=== PATIENT | female | born 1950 | race Caucasian/White ===

== ENCOUNTER 2016-07-23 10:07 | Emergency (ER) | payer MEDICARE, OTHER ==
[2016-07-23] MEDS ORDERED: KETOROLAC 60 MG/2 ML VIAL IM STA (12:45)
[2016-07-23] MEDS ORDERED: DEXAMETHASONE 10 MG/ML VIAL PO STA (12:46)
[2016-07-23] MEDS ORDERED: KETOROLAC 60 MG/2 ML VIAL ONE (12:48)
[2016-07-23] MEDS ORDERED: DEXAMETHASONE 10 MG/ML VIAL ONE (12:48)
[2016-07-23] MEDS ORDERED: CHERRY SYRUP 10 ML UDC PO ONE (12:48)
== END 2016-07-23 13:08 | disposition home or self-care (01) ==
DX: M46.1 Sacroiliitis, not elsewhere classified (principal); F17.200 Nicotine dependence, unspecified, uncomplicated
CPT/HCPCS: 96372; 99282; 99283; A9270

== ENCOUNTER 2016-10-10 02:01 | Emergency (ER) | payer MEDICARE, OTHER ==
[2016-10-10] MEDS ORDERED: oxyCOD/ACETAMIN 5 MG/325 MG TABLET PO STA (02:38)
[2016-10-10] MEDS ORDERED: METHOCARBAMOL 500 MG TABLET PO STA (02:38)
[2016-10-10] MEDS ORDERED: IBUPROFEN 600 MG TABLET PO STA (02:38)
[2016-10-10] MEDS ORDERED: oxyCODONE/ACET 5/325 Prepack 4 PO STA (02:38)
[2016-10-10] MEDS ORDERED: oxyCODONE/ACET 5/325 Prepack 4 PO ONE (02:41)
[2016-10-10] MEDS ORDERED: IBUPROFEN 600 MG TABLET PO ONE (02:41)
[2016-10-10] MEDS ORDERED: oxyCOD/ACETAMIN 5 MG/325 MG TABLET PO ONE (02:41)
[2016-10-10] MEDS ORDERED: METHOCARBAMOL 500 MG TABLET PO ONE (02:41)
== END 2016-10-10 03:29 | disposition home or self-care (01) ==
DX: M54.2 Cervicalgia (principal); E03.9 Hypothyroidism, unspecified; F17.200 Nicotine dependence, unspecified, uncomplicated
CPT/HCPCS: 72040; 99283; A9270

== ENCOUNTER 2016-12-02 06:36 | Emergency (ER) | payer MEDICARE, OTHER ==
[2016-12-02] MEDS ORDERED: HYDROmorphone 1 MG/ML SYRINGE IM STA (07:32)
[2016-12-02] MEDS ORDERED: LIDOCAINE PATCH 5% TOP STA (07:32)
[2016-12-02] MEDS ORDERED: KETOROLAC 60 MG/2 ML VIAL IM STA (07:32)
--- NOTE | 2016-12-02 07:35 | ED Physician Documentation ---
History of Present Illness - Stated complaint Stated Complaint: HEAD/NECK/BACK PX - Chief complaint Chief Complaint: Back Pain - Additonal information Additional information: 66 female long standing neck and back pain prior L spine fusion recent MRI showed C spine nerve impingement has a referral to a pain specialist but appt not till December 22 takes dilaudid at home in neck and low lumbar L side pain not relieved by home meds no new numbness or weakness no saddle anesthesia no incont no rash also had a colonoscopy 5 days ago and is having abd pain Review of Systems Constitutional: denies: Fever, Chills Cardiac: denies: Chest pain / pressure Respiratory: denies: Dyspnea, Cough GI: reports: Abdominal Pain. denies: Nausea, Vomiting, Diarrhea : denies: Incontinent, Hematuria Musculoskeletal: reports: Neck pain, Back pain Neurologic: denies: Focal weakness, Numbness Endocrine: denies: Easy bruising / bleeding Immunocompromised: denies: Immunocompromised PD PAST MEDICAL HISTORY - Past Medical History Cardiovascular: None Respiratory: None Endocrine/Autoimmune: HyPOthyroidism, Other GI: None : None HEENT: None Psych: Depression Musculoskeletal: None, Chronic back pain Derm: None - Past Surgical History Past Surgical History: Yes General: Cholecystectomy, Appendectomy, Colonoscopy Ortho: Spine surgery, 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 HEENT: Cataracts - Present Medications Home Medications: Ambulatory Orders Medication Instructions Recorded Confirmed Levothyroxine [Synthroid] 175 mcg PO QDAC 03/30/13 12/02/16 Sertraline [Zoloft] 150 mg PO DAILY 03/30/13 12/02/16 Vit D3/Folic Acid/B2/B6/B12 1 units PO DAILY 03/30/13 12/02/16 [Folgard Tablet] Amox/Clav 875/125 [Augmentin] 1 each PO Q12H #20 tablet 12/02/16 Docusate Sodium 250Mg Capsule 250 mg PO DAILY #14 capsule 12/02/16 [Colace 250Mg Capsule] HYDROmorphone [Dilaudid] 2 mg PO Q6HR 12/02/16 12/02/16 Lidocaine Patch 5% [Lidoderm Patch] 1 each TOP DAILY PRN #10 patch 12/02/16 - Allergies Allergies/Adverse Reactions: Allergies Allergy/AdvReac Type Severity Reaction Status Date / Time morphine AdvReac Mild Hallucinati Verified 10/10/16 02:10 ons - Social History Does the pt smoke?: Yes Smoking Status: Current every day smoker Does the pt drink ETOH?: Yes Does the pt have substance abuse?: No - Immunizations Immunizations are current?: Yes - POLST Patient has POLST: No PD ED PE NORMAL - Vitals Vital signs reviewed: Yes - General General: Alert and oriented X 3 - HEENT HEENT: PERRL - Neck Neck: Supple, no meningeal sign, Other (no focal TTP and no redness swelling or warmth - had MRI within last few wks of this) - Cardiac Cardiac: RRR - Respiratory Respiratory: No respiratory distress, Clear bilaterally - Abdomen Abdomen: Soft, Other (mild diffuse TTP) - Back Back: No spinal TTP (midline scar, no focal redness or swelling or warmth, TTP L SI jt region, ) - Neuro Neuro: No motor deficit (limited L hip flexion 2/2 pain but makes effort, no numbness, no clonus, denies saddle anesthesia), No sensory deficit Results - Vitals Vitals: Vital Signs - 24 hr 12/02/16 12/02/16 06:48 08:27 Temperature 36.5 C Heart Rate 88 72 Respiratory 12 16 Rate Blood Pressure 111/52 L 106/67 O2 Saturation 97 97 Oxygen O2 Source Room air - Labs Labs: Laboratory Tests 12/02/16 07:40 Urine Color YELLOW Urine Clarity HAZY Urine pH 6.0 Ur Specific [place] <=1.005 Urine Protein NEGATIVE Urine Glucose (UA) NEGATIVE Urine Ketones NEGATIVE Urine Occult Blood TRACE-LYSE Urine Nitrite NEGATIVE Urine Bilirubin NEGATIVE Urine Urobilinogen 0.2 (NORMAL) Ur Leukocyte Esterase SMALL H Urine RBC 0-5 Urine WBC 6-10 H Ur Squamous Epith Cells RARE Squamous Urine Bacteria Few Ur Microscopic Review INDICATED Urine Culture Comments INDICATED - Rads (name of study) L spine CT Radiology: See rad report (degen and post op changes, santo renal adenoma, no AAA , atherosclerosis) CT abd pelvis Radiology: See rad report (diverticulitis, no abscess, santo adrenal adenomas) PD MEDICAL DECISION MAKING - ED course ED course: very slightly + UA, woudld normally wait on cx - but pt will be on antibiotics for diverticulitis anyway Departure - Departure Disposition: 01 Home, Self Care Clinical Impression: Neck pain, UTI (urinary tract infection) Back pain Qualifiers: Back pain location: low back pain Chronicity: acute Back pain laterality: left Sciatica presence: without sciatica Qualified Code(s): M54.5 - Low back pain Diverticulitis Qualifiers: Diverticulitis site: large intestine Diverticulitis bleeding: without bleeding Diverticulitis complication: without perforation or abscess Qualified Code(s): K57.32 - Diverticulitis of large intestine without perforation or abscess without bleeding Condition: Good Instructions: ED Neck Back Pain General, ED Diverticulitis, ED UTI Cystitis Female Follow-Up: Francesco Garvey MD [Primary Care Provider] - Prescriptions: Amox/Clav 875/125 [Augmentin] 1 each PO Q12H #20 tablet Docusate Sodium 250Mg Capsule [Colace 250Mg Capsule] 250 mg PO DAILY #14 capsule Lidocaine Patch 5% [Lidoderm Patch] 1 each TOP DAILY PRN #10 patch PRN Reason: Pain Comments: The CT scans did not show any new spine problems - no evidence of fracture or dislocation or bone infection or tumor Also no aneurysm or kidney stones For the neck and back pain I recommend continuing your dilaudid and adding the lidocaine patches. A steroid to decrease the inflammation would be very helpful but you also have a colon infection so that is not a good option for you right now You do have diverticulitis - there is no perforation or abscess so it is reasonable to try and treat you at home for this - recommend a clear liquid diet for 48 hours and then slowly advance but avoid small hard foods such as seeds and nuts - take a stool softener to prevent excess stress on your colon - take the antibioc I have prescribed as well as a probiotic. Follow up with Dr Garvey for a recheck within 48 hr Return if worse - some cases of diverticulitis, whether treated at home or in the hospital, get worse and develop a perforation or abscess - so any worsening of symptoms should be re-evaluated You also have a mild bladder infection - the antibiotics prescribed for the diverticulitis should help the urine infection too
[2016-12-02] MEDS ORDERED: KETOROLAC 60 MG/2 ML VIAL ONE (07:37)
[2016-12-02] MEDS ORDERED: LIDOCAINE PATCH 5% TOP ONE (07:37)
[2016-12-02 07:54] LABS: BILIRUBIN,URINE NEGATIVE (NEGATIVE)
[2016-12-02 08:08] LABS: UA w/ MICROSCOPIC CHARGE YES; UR CULTURE IF IND INDICATED
--- NOTE | 2016-12-02 08:33 | CT Preliminary Report ---
Exam: CT Abdomen/Pelvis W/O IMPRESSION: 1. Mild to moderate inflammation adjacent to proximal sigmoid colon is likely due to diverticulitis. No abscess. Numerous diverticula are noted. 2. Bilateral adrenal adenomas. [facility] SITE ID: [id number]
--- NOTE | 2016-12-02 08:36 | CT Report ---
EXAM: CT ABDOMEN AND PELVIS (CT KUB) EXAM DATE: 12/02/2016 08:05 AM. CLINICAL HISTORY: Abdominal pain s/p colonoscopy L SI region pain swell. COMPARISONS: None. TECHNIQUE: Routine axial helical CT imaging was performed through the abdomen and pelvis without IV c ontrast. Reconstructions: Coronal and sagittal. In accordance with CT protocol optimization, one or more of the following dose reduction techniques w ere utilized for this exam: automated exposure control, adjustment of mA and/or KV based on patient s ize, or use of iterative reconstructive technique. FINDINGS: Lung Bases: Unremarkable. Right Kidney/Ureter: No stones, hydronephrosis, or hydroureter. No perinephric fat stranding. 3.2 cm medial right lower renal cyst with water attenuation. Left Kidney/Ureter: No stones, hydronephrosis, or hydroureter. No perinephric fat stranding. Other Solid Organs: Bilateral adrenal lesions with attenuation compatible with benign adenomas. The l eft-sided lesion measures 3.1 x 2.5 cm; the right lesion measures 2.5 x 1.5 cm. Remaining solid organs appear grossly unremarkable without IV contrast. Gallbladder/Bile Ducts: Prior cholecystectomy. Peritoneal Cavity: Diverticulosis. Mild to moderate inflammation adjacent to proximal sigmoid colon. No drainable fluid collection to suggest abscess. No dilated bowel. Probable inflamed diverticulum on coronal image 28. Mobile cecum within right hemipelvis. Pelvic Organs: Bladder is mostly collapse. Prior hysterectomy. Probable phlebolith along left inferio r aspect of urinary bladder. Vasculature: Extensive atherosclerotic atrial calcifications. No abdominal aortic aneurysm. Other: Prior posterior interbody L5-S1 fusion. Symmetric subchondral sclerosis anterior aspects of bilateral sacroiliac joints. Findings compatible with degenerative change. IMPRESSION: 1. Mild to moderate inflammation adjacent to proximal sigmoid colon is likely due to diverticulitis. No abscess. Numerous diverticula are noted. 2. Bilateral adrenal adenomas. [facility] Referring Provider Line: [phone] SITE ID: [id number]
--- NOTE | 2016-12-02 09:08 | CT Preliminary Report ---
Exam: CT Lumbar Spine W/O Impression: Degenerative and postoperative changes of the lumbosacral spine. Bilateral adrenal adenomas. Atherosclerosis of the aorta and iliac arteries without evidence of an abdominal aortic aneurysm. [facility] SITE ID: [id number]
--- NOTE | 2016-12-02 09:11 | CT Report ---
EXAM: CT LUMBAR SPINE WITHOUT CONTRAST EXAM DATE: 12/02/2016 08:08 AM. CLINICAL HISTORY: Low lumbar L SI region pain and swelling . COMPARISONS: None. TECHNIQUE: Thin-section axial images were acquired of the lumbar spine from T12 to S1 without contras t. Post-processing: Coronal and sagittal reformats. Other: None. In accordance with CT protocol optimization, one or more of the following dose reduction techniques w ere utilized for this exam: automated exposure control, adjustment of mA and/or KV based on patient s ize, or use of iterative reconstructive technique. FINDINGS: There is a normal curvature of the lumbar spine. There are postoperative and degenerative changes at L5 and S1. Mild diffuse degenerative endplate changes are noted. Linear changes are noted within the right lung base. This most likely represents scarring or atelectasis. There is atherosclerosis of the aorta. There is a lesion in the left adrenal gland. It measures approximately 2.88 x 2.5 cm. It randal ures -8 Hounsfield units. This is consistent with an adrenal adenoma. The right adrenal gland is prom inent. It measures -4 Hounsfield units. It measures approximately 1.3 x 2.2 cm. This also most likely represents an adrenal adenoma. Impression: Degenerative and postoperative changes of the lumbosacral spine. Bilateral adrenal adenomas. Atherosclerosis of the aorta and iliac arteries without evidence of an abdominal aortic aneurysm. [facility] Referring Provider Line: [phone] SITE ID: [id number]
[2016-12-02 09:16] VITALS: BP 118/61
== END 2016-12-02 09:36 | disposition home or self-care (01) ==
LOC: ED 06:36
DX: M54.2 Cervicalgia (principal); N30.00 Acute cystitis without hematuria; M54.5 Low back pain; K57.32 Diverticulitis of large intestine without perforation or abscess without bleeding; E03.9 Hypothyroidism, unspecified; F17.200 Nicotine dependence, unspecified, uncomplicated
CPT/HCPCS: 72131; 74176; 81001; 87086; 96372; 99283; 99284; A9270; 81003

== ENCOUNTER 2017-06-02 15:04 | Outpatient (CLI) | payer MEDICARE, OTHER ==
--- NOTE | 2017-06-05 14:49 | DEXA Report ---
DEXA SCAN: 06/02/2017 CLINICAL INDICATION: Primary ovarian failure. Steroid use. Thyroid replacement therapy. Inflammatory bowel disease. Inflammatory arthritis. TECHNIQUE: Dual energy x-ray absorptiometry (DXA) was performed on a [employer] system. Regions measured are the AP spine, femoral neck, and, if needed, forearm. COMPARISON: None. In accordance with the International Society for Clinical Densitometry (ISCD) guidelines, data from previous exams may be reanalyzed using current recommendations and techniques. This is done to allow a more accurate basis for comparison with the current study. FINDINGS LUMBAR SPINE DATA: N/A HIP DATA: REGION BMD (g/cm/cm) T-SCORE Z-SCORE Neck 0.611 -3.1 -1.4 TOTAL 0.751 -2.0 -0.6 NOTE: The femoral neck or total proximal femur, whichever is lowest, is used for classification. FOREARM DATA: REGION BMD (g/cm/cm) T-SCORE Z-SCORE 1/3 0.659 -2.5 -0.8 NOTE: The 33% radius of the nondominant forearm is used for classification. IMPRESSION THE WHO CLASSIFICATION BASED ON THE INTERNATIONAL REFERENCE STANDARD: OSTEOPOROSIS.. FRACTURE RISK: HIGH. RECOMMENDATION: Patients with diagnosis of osteoporosis or osteopenia should have regular bone mineral density assessment. For those eligible for Medicare, routine testing is allowed once every 2 years. Testing frequency can be increased for patients who have rapidly progressing disease or for those who are receiving medical therapy to restore bone mass. COMMENT: World Health Organization (WHO) definitions for osteoporosis and osteopenia: NORMAL BMD: T-score at -1.0 or higher, fracture risk is low. OSTEOPENIA BMD: T-score between -1.0 and -2.5, fracture risk is increased. OSTEOPOROSIS BMD: T-score at -2.5 or lower, fracture risk high. National Osteoporosis Foundation recommends: 1. Obtain adequate dietary calcium (at least 1200 mg per day) and vitamin D (400 -800 international units per day). 2. Participate, as appropriate, in regular weightbearing and muscle- strengthening exercise. 3. Avoid tobacco use and reduce alcohol and caffeine intake. 4. For more detailed information see the website at www.NOF.org. MTDD
== END 2017-06-02 15:05 | disposition home or self-care (01) ==
LOC: DI 15:04
PROVIDERS: ATTEND Physician Assistant Medical
DX: M81.0 Age-related osteoporosis without current pathological fracture (principal)
CPT/HCPCS: 77080

== ENCOUNTER 2017-06-02 15:05 | Outpatient (CLI) | payer MEDICARE, OTHER ==
--- NOTE | 2017-06-04 15:44 | Mammography Report ---
DIGITAL SCREENING MAMMOGRAM: 06/02/2017 COMPARISON: 01/09/2016, 11/11/2014, 08/17/2013, 05/05/2012, 03/21/2011, 09/04/2009. TECHNIQUE: Routine CC and MLO projections were obtained of the breasts. FINDINGS: The breast tissue is heterogeneously dense. Seen only on the left MLO projection are two areas of asymmetric increased density, one anterior third and the other posterior third, most likely representing superimposition of structures as they are not confirmed on the CC projection. However, suggest additional evaluation by spot compression and true lateral views of the left breast. If the density persists, ultrasound may be useful. There are no suspicious microcalcifications, skin thickening or other new abnormality in either breas t. IMPRESSION: NEGATIVE RIGHT BREAST. BIRADS CATEGORY: 1, NEGATIVE. NEEDS ADDITIONAL EVALUATION LEFT BREAST. BIRADS CATEGORY: 0, INCOMPLETE. STANDARD QUALIFYING STATEMENTS 1. This examination was reviewed with the aid of Computed-Aided Detection (CAD). 2. A negative or benign imaging report should not delay biopsy if clinically suspicious findings are present. Consider surgical consultation if warranted. More than 5% of cancers are not identified b y imaging. 3. Dense breasts may obscure an underlying neoplasm. JOB #: [id number] EXT JOB #:[id number]
== END 2017-06-02 15:06 | disposition home or self-care (01) ==
LOC: DI 15:05
PROVIDERS: ATTEND Physician Assistant Medical
DX: Z12.31 Encounter for screening mammogram for malignant neoplasm of breast (principal); R92.8 Other abnormal and inconclusive findings on diagnostic imaging of breast
CPT/HCPCS: 77067

== ENCOUNTER 2017-07-01 08:59 | Outpatient (CLI) | payer MEDICARE, OTHER ==
--- NOTE | 2017-07-03 15:28 | Mammography Report ---
DATE OF SERVICE: 07/01/2017 DIGITAL DIAGNOSTIC MAMMOGRAM: 07/01/2017 COMPARISON: Mammogram 06/02/2017. INDICATION: Asymmetries on left MLO view on screening mammogram. TECHNIQUE: Left ML, MLO, and MLO views with spot compression. FINDINGS This examination is read in correlation with recent screening mammogram of 06/02. The breast parenchyma is heterogeneously dense which may limit the sensitivity of mammography. The previous questionable abnormal asymmetries of the left breast do not persist with additional views. No dominant mass, concerning cluster of microcalcifications, or architectural distortion is seen. IMPRESSION: BIRADS category 1. Negative. RECOMMENDATIONS: Annual screening mammogram. STANDARD QUALIFYING STATEMENTS 1. This examination was reviewed with the aid of Computed-Aided Detection (CAD) . 2. A negative or benign imaging report should not delay biopsy if clinically suspicious findings are present. Consider surgical consultation if warranted. More than 5% of cancers are not identified by imaging. 3. Dense breasts may obscure an underlying neoplasm. TD: 07/01/2017 20:23 JT
== END 2017-07-01 09:00 | disposition home or self-care (01) ==
LOC: DI 08:59
PROVIDERS: ATTEND Physician Assistant Medical
DX: R92.8 Other abnormal and inconclusive findings on diagnostic imaging of breast (principal)

== ENCOUNTER 2017-10-16 08:00 | Outpatient (CLI) | payer MEDICARE, OTHER | END 2017-10-16 08:01 | disposition home or self-care (01) | LOC: LAB.R 08:00 | PROVIDERS: ATTEND Physician Assistant Medical | DX: R31.9 Hematuria, unspecified (principal) | CPT/HCPCS: 87086 ==

== ENCOUNTER 2018-03-09 09:42 | Outpatient (CLI) | payer MEDICARE, OTHER ==
--- NOTE | 2018-03-09 10:56 | XRAY Report ---
Reason: ELBOW JOINT PAIN,RIGHT Procedure Date: 03/09/2018 Accession Number: [id number] / [id number] Procedure: XR - Elbow 3 View RT CPT Code: FULL RESULT: EXAM: RIGHT ELBOW RADIOGRAPHY EXAM DATE: 03/09/2018 10:16 AM. CLINICAL HISTORY: ELBOW JOINT PAIN,RIGHT. COMPARISON: None. TECHNIQUE: 3 views. FINDINGS: Bones: No obvious fractures or bone lesions. Joints: No effusion. No subluxation. Soft Tissues: No soft tissue swelling. IMPRESSION: Negative elbow radiography. [facility]
== END 2018-03-09 09:43 | disposition home or self-care (01) ==
LOC: DI 09:42
PROVIDERS: ATTEND Internal Medicine
DX: M25.521 Pain in right elbow (principal)

== ENCOUNTER 2018-09-22 11:09 | Emergency (ER) | payer MEDICARE, OTHER ==
[2018-09-22 11:22] VITALS: BP 102/56
--- NOTE | 2018-09-22 12:36 | ED Physician Documentation ---
PD HPI ABD PAIN - Stated complaint Stated Complaint: ABD PX - Chief complaint Chief Complaint: Abd Pain - History obtained from History obtained from: Patient - History of Present Illness Timing - onset: How many days ago (2) Timing - duration: Days (2) Timing - details: Gradual onset, Still present Quality: Cramping, Aching, Pain Location: RLQ, Suprapubic Radiation: No: Lower back Associated symptoms: No: Fever, Nausea, Vomiting, Diarrhea, Hematochezia Similar symptoms before: Diagnosis (has had diverticulitis few times with pain similar location, treated outpatient each time. Same symptoms now, with only difference being some pain toward midline/slightly left as well today too. 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 HEENT: None Psych: Depression Musculoskeletal: Osteoarthritis, Chronic back pain Derm: None - Past Surgical History Past Surgical History: Yes General: Cholecystectomy, Appendectomy, Colonoscopy Ortho: Spine surgery, 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 HEENT: Cataracts - Present Medications Home Medications: Ambulatory Orders Medication Instructions Recorded Confirmed Levothyroxine [Synthroid] 175 mcg PO QDAC 03/30/13 12/02/16 Sertraline [Zoloft] 150 mg PO DAILY 03/30/13 12/02/16 Metronidazole [Flagyl] 500 mg PO BID #20 tablet 09/22/18 Naproxen 375 mg PO BID #20 tablet 09/22/18 Oxycodone HCl/Acetaminophen 1 - 2 each PO Q6H PRN #14 tablet 09/22/18 [Percocet 5-325 mg Tablet] Sulfamethox/Trimeth 800/160 1 each PO BID #20 tablet 09/22/18 [Bactrim Ds 800/160] - Allergies Allergies/Adverse Reactions: Allergies Allergy/AdvReac Type Severity Reaction Status Date / Time morphine AdvReac Mild Hallucinati Verified 09/22/18 12:02 ons - Social History Does the pt smoke?: Yes Smoking Status: Current every day smoker Does the pt drink ETOH?: Yes ETOH Use: Wine Does the pt have substance abuse?: No - Immunizations Immunizations are current?: Yes - POLST Patient has POLST: No PD ED PE NORMAL - Vitals Vital signs reviewed: Yes - General General: Alert and oriented X 3, No acute distress, Well developed/nourished - HEENT HEENT: Pharynx benign - Neck Neck: Supple, no meningeal sign, No adenopathy - Cardiac Cardiac: RRR, No murmur - Respiratory Respiratory: Clear bilaterally - Abdomen Abdomen: Normal bowel sounds, Soft, Non distended, Other (tender RLQ and midline lower abd without guarding nor percussion/rebound tendernes. No generalized tenderness. ) - Back Back: No CVA TTP - Derm Derm: Normal color, Warm and dry Results - Vitals Vitals: Oxygen O2 Source Room air PD MEDICAL DECISION MAKING - ED course Complexity details: considered differential (history of diverticulitis several times with similar symptoms. Not peritoneal on exam. Shared decision to empirically treat for diverticulitis without lab/imaging. To return if not improving or worse. ), d/w patient Departure - Departure Disposition: 01 Home, Self Care Clinical Impression: Lower abdominal pain, Diverticulitis Condition: Stable Record reviewed to determine appropriate education?: Yes Instructions: ED Diverticulitis Follow-Up: Moiz Goode MD [Primary Care Provider] - Prescriptions: Metronidazole [Flagyl] 500 mg PO BID #20 tablet Naproxen 375 mg PO BID #20 tablet Oxycodone HCl/Acetaminophen [Percocet 5-325 mg Tablet] 1 - 2 each PO Q6H PRN #14 tablet PRN Reason: pain Sulfamethox/Trimeth 800/160 [Bactrim Ds 800/160] 1 each PO BID #20 tablet Comments: Stay well-hydrated. Use the naproxen for inflammation and pain twice daily. Add Tylenol or Percocet if needed for pain. Metronidazole and Bactrim antibiotics twice daily for 10 days for the infection. Recheck if not well improving steadily over the next 2-3 days return sooner if you have worsening pain, fevers, vomiting, bloody stools, other concerns. Discharge Date/Time: 09/22/18 13:21
[2018-09-22] MEDS ORDERED: oxyCODONE 5 MG TABLET PO STA (12:51)
[2018-09-22] MEDS ORDERED: NAPROXEN 250 MG TABLET PO STA (12:51)
[2018-09-22] MEDS ORDERED: metroNIDAZOLE 250 MG TABLET PO STA (12:51)
[2018-09-22] MEDS ORDERED: SULFAMETH/TRIMETH DS 800/160 MG TABLET PO STA (12:51)
== END 2018-09-22 13:21 | disposition home or self-care (01) ==
LOC: ED 11:09
DX: K57.92 Diverticulitis of intestine, part unspecified, without perforation or abscess without bleeding (principal); E03.9 Hypothyroidism, unspecified; F17.200 Nicotine dependence, unspecified, uncomplicated
CPT/HCPCS: 99283; 99284; A9270

== ENCOUNTER 2018-12-11 09:55 | Outpatient (CLI) | payer MEDICARE, OTHER ==
[2018-12-11 10:35] LABS: BASOPHILS # (AUTO) 0.1 10^3/uL (0.0-0.1); BASOPHILS % (AUTO) 1.9 %; EOSINOPHILS # (AUTO) 0.1 10^3/uL (0.0-0.7); EOSINOPHILS % (AUTO) 1.4 %; HGB - HEMOGLOBIN 14.5 g/dL (12.0-16.0); LYMPHOCYTES # (AUTO) 2.4 10^3/uL (1.5-3.5); LYMPHOCYTES % (AUTO) 38.4 %; MEAN CORPUSCULAR HEMOGLOBIN 30.6 pg (27.0-31.0); MEAN CORPUSCULAR HGB CONC 33.4 g/dL (32.0-36.0); MEAN CORPUSCULAR VOLUME 91.7 fL (81.0-99.0); MONOCYTES # (AUTO) 0.5 10^3/uL (0.0-1.0); MONOCYTES % (AUTO) 7.8 %; NEUTROPHILS # (AUTO) 3.2 10^3/uL (1.5-6.6); NEUTROPHILS % (AUTO) 50.5 %; PLT - PLATELET COUNT 249 10^3/uL (130-450); RED BLOOD COUNT 4.73 10^6/uL (4.20-5.40); RED CELL DISTRIBUTION WIDTH 12.6 % (12.0-15.0); WHITE BLOOD COUNT 6.3 x10^3/uL (4.8-10.8)
[2018-12-11 10:44] LABS: ALBUMIN 4.5 g/dL (3.2-5.5); ALBUMIN/GLOBULIN RATIO 1.5 (1.0-2.2); ALKALINE PHOSPHATASE 86 IU/L (42-121); ALT ALANINE AMINOTRANSFERASE 21 IU/L (10-60); AST ASPARTATE AMINOTRANSFERASE 22 IU/L (10-42); BILIRUBIN,TOTAL 0.8 mg/dL (0.2-1.0); BUN - BLOOD UREA NITROGEN 12 mg/dL (6-20); CALCIUM 9.4 mg/dL (8.5-10.3); CARBON DIOXIDE - CO2 24 mmol/L (21-32); CHLORIDE 102 mmol/L (101-111); CHOL/HDL RATIO 2.7 (<4.4); CHOLESTEROL 184 mg/dL; CREATININE 0.6 mg/dL (0.4-1.0); GFR - MDRD 99 (>89); GLUCOSE 106 mg/dL (70-100); HDL CHOLESTEROL 67 mg/dL; LDL CHOLESTEROL,CALCULATED 103 mg/dL; LDL/HDL RATIO 1.5 (<4.4); SODIUM 137 mmol/L (135-145); TOTAL PROTEIN 7.6 g/dL (6.7-8.2); VLDL CHOLESTEROL 14 mg/dL
[2018-12-11 12:24] LABS: THYROID STIMULATING HORMONE 0.16 uIU/mL (0.34-5.60)
== END 2018-12-11 09:56 | disposition home or self-care (01) ==
LOC: LAB 09:55
PROVIDERS: ATTEND Nurse Practitioner
DX: E03.9 Hypothyroidism, unspecified (principal); E55.9 Vitamin D deficiency, unspecified; Z79.899 Other long term (current) drug therapy; F10.10 Alcohol abuse, uncomplicated; R73.9 Hyperglycemia, unspecified; Z85.850 Personal history of malignant neoplasm of thyroid; F32.9 Major depressive disorder, single episode, unspecified
CPT/HCPCS: 36415; 80053; 80061; 82306; 82607; 83721; 84443; 85025

== ENCOUNTER 2019-03-02 10:30 | Emergency (ER) | payer MEDICARE, OTHER ==
--- NOTE | 2019-03-02 11:10 | ED Physician Documentation ---
History of Present Illness - Stated complaint Stated Complaint: ABD PAIN - Chief complaint Chief Complaint: Abd Pain - Additonal information Additional information: This is a 68-year-old female with a history of a hysterectomy, cholecystectomy, appendectomy, as well as diverticulitis, who presents with 2 weeks of abdominal discomfort. Patient states that her symptoms began with some mild right lower quadrant discomfort, which is generalized and does not radiate towards her epigastrium and is worse in her left lower quadrant. This feels a bit different than her typical diverticulitis. She has not had an appetite, but denies vomiting. She has continued to have bowel movements, and these are nonbloody. No hematemesis, no fever. 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 : None HEENT: None Psych: Depression Musculoskeletal: Osteoarthritis, Chronic back pain Derm: None - Past Surgical History Past Surgical History: Yes General: Cholecystectomy, Appendectomy, Colonoscopy Ortho: Spine surgery, 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 DRIVER: Hysterectomy HEENT: Cataracts - Present Medications Home Medications: Ambulatory Orders Medication Instructions Recorded Confirmed Levothyroxine [Synthroid] 175 mcg PO QDAC 03/30/13 12/02/16 Sertraline [Zoloft] 150 mg PO DAILY 03/30/13 12/02/16 Metronidazole [Flagyl] 500 mg PO BID #20 tablet 09/22/18 Oxycodone HCl/Acetaminophen 1 - 2 each PO Q6H PRN #14 tablet 09/22/18 [Percocet 5-325 mg Tablet] RX: Naproxen 375 mg PO BID #20 tablet 09/22/18 Sulfamethox/Trimeth 800/160 1 each PO BID #20 tablet 09/22/18 [Bactrim Ds 800/160] - Allergies Allergies/Adverse Reactions: Allergies Allergy/AdvReac Type Severity Reaction Status Date / Time morphine AdvReac Mild Hallucinati Verified 09/22/18 12:02 ons - Social History Does the pt smoke?: Yes Smoking Status: Current every day smoker Does the pt drink ETOH?: Yes Does the pt have substance abuse?: No - Immunizations Immunizations are current?: Yes - POLST Patient has POLST: No PD ED PE NORMAL - Vitals Vital signs reviewed: Yes - General General: Alert and oriented X 3, No acute distress - HEENT HEENT: PERRL - Neck Neck: Supple, no meningeal sign - Cardiac Cardiac: RRR, No murmur - Respiratory Respiratory: No respiratory distress, Clear bilaterally - Abdomen Abdomen: Other (Soft, not obviously distended. There is tenderness in the left lower quadrant and to a lesser extent in the suprapubic region. No significant upper quadrant tenderness on my exam. No guarding) - Derm Derm: Warm and dry - Extremities Extremities: No deformity - Neuro Neuro: Alert and oriented X 3 - Psych Psych: Normal mood, Normal affect Results - Vitals Vitals: Vital Signs - 24 hr 03/02/19 03/02/19 10:34 13:03 Temperature 36.9 C Heart Rate 70 78 Respiratory 19 18 Rate Blood Pressure 134/82 H 142/73 H O2 Saturation 98 98 Oxygen O2 Source Room air - Labs Labs: Laboratory Tests 03/02/19 03/02/19 03/02/19 10:46 10:50 10:50 WBC 8.7 RBC 4.71 Hgb 14.5 Hct 44.1 MCV 93.6 MCH 30.8 MCHC 32.9 RDW 12.1 Plt Count 298 MPV 10.1 Neut # (Auto) 4.2 Lymph # (Auto) 3.3 Coos # (Auto) 0.9 Eos # (Auto) 0.2 Baso # (Auto) 0.1 Absolute Nucleated RBC 0.00 Nucleated RBC % 0.0 Sodium 139 Potassium 3.7 Chloride 101 Carbon Dioxide 29 Anion Gap 9.0 BUN 10 Creatinine 0.6 Estimated GFR (MDRD) 99 Glucose 97 Calcium 9.1 Total Bilirubin 0.8 AST 19 ALT 16 Alkaline Phosphatase 88 Total Protein 7.8 Albumin 4.3 Globulin 3.5 Albumin/Globulin Ratio 1.2 Lipase 31 Urine Color YELLOW Urine Clarity CLEAR Urine pH 6.5 Ur Specific [place] 1.010 Urine Protein NEGATIVE Urine Glucose (UA) NEGATIVE Urine Ketones NEGATIVE Urine Occult Blood NEGATIVE Urine Nitrite NEGATIVE Urine Bilirubin NEGATIVE Urine Urobilinogen 0.2 (NORMAL) Ur Leukocyte Esterase NEGATIVE Ur Microscopic Review NOT INDICATED Urine Culture Comments NOT INDICATED - Rads (name of study) CT abd/pelvis Radiology: Other (Diverticulosis Without diverticulitis. Incidental renal cyst, adrenal nodules noted, no clear explanation for patient's abdominal discomfort.) PD MEDICAL DECISION MAKING - ED course Complexity details: considered differential (Diverticulitis, abscess, partial bowel obstruction, enteritis, gastroenteritis) ED course: On exam patient is nontoxic-appearing, vital signs unremarkable. Patient has some mild left lower quadrant tenderness on palpation of her abdomen. CBC, CMP and lipase are unremarkable. Her UA is negative for infection. CT scan notable for incidental findings including diverticulosis without diverticulitis, adrenal nodules, and hepatomegaly, however no clear explanation for her abdominal pain. I shared these results with the patient, including the incidental findings, and recommend she follow-up with her primary care provider on these. She continues to be well-appearing with a benign repeat abdominal exam. I have a low suspicion for abdominal pathology given her work-up. I discussed with her that I do not see an obvious cause of her symptoms, and I recommend that she continues hydration, Tylenol if needed for discomfort, and close follow-up with her primary care. If she has worsening abdominal pain, any chest pain or shortness of breath, persistent vomiting, or blood in her stool she will return to the emergency department. Patient agrees and was discharged home in the care of family. Departure - Departure Disposition: 01 Home, Self Care Clinical Impression: Abdominal pain Qualifiers: Abdominal location: left lower quadrant Qualified Code(s): R10.32 - Left lower quadrant pain Condition: Good Instructions: ED Abdominal Pain Unkn Cause Follow-Up: Ann-Marie Gonzalez ARNP, GYMNAST[employer] TEACHER-C [Primary Care Provider] - Within 1 week Comments: We did not see a clear cause of your abdominal pain on your CT or labs. You were found to have an incidental renal cyst, adrenal nodules, and enlargement of your liver, please follow-up with your primary care provider on these findings. Return to the emergency department if you develop any worsening abdominal pain, vomiting, or other concerning symptoms Discharge Date/Time: 03/02/19 13:04
[2019-03-02 11:17] LABS: BASOPHILS # (AUTO) 0.1 10^3/uL (0.0-0.1); BASOPHILS % (AUTO) 0.9 %; EOSINOPHILS # (AUTO) 0.2 10^3/uL (0.0-0.7); EOSINOPHILS % (AUTO) 1.8 %; HGB - HEMOGLOBIN 14.5 g/dL (12.0-16.0); LYMPHOCYTES # (AUTO) 3.3 10^3/uL (1.5-3.5); LYMPHOCYTES % (AUTO) 37.6 %; MEAN CORPUSCULAR HEMOGLOBIN 30.8 pg (27.0-31.0); MEAN CORPUSCULAR HGB CONC 32.9 g/dL (32.0-36.0); MEAN CORPUSCULAR VOLUME 93.6 fL (81.0-99.0); MEAN PLATELET VOLUME 10.1 fL (7.9-10.8); MONOCYTES # (AUTO) 0.9 10^3/uL (0.0-1.0); MONOCYTES % (AUTO) 10.4 %; NEUTROPHILS # (AUTO) 4.2 10^3/uL (1.5-6.6); NEUTROPHILS % (AUTO) 48.8 %; PLT - PLATELET COUNT 298 10^3/uL (130-450); RED BLOOD COUNT 4.71 10^6/uL (4.20-5.40); RED CELL DISTRIBUTION WIDTH 12.1 % (12.0-15.0); WHITE BLOOD COUNT 8.7 x10^3/uL (4.8-10.8)
[2019-03-02] MEDS ORDERED: IOVERSOL 320 100 ML VIAL IVP ONE ×2 (11:22→19:01)
[2019-03-02 11:27] LABS: ALBUMIN 4.3 g/dL (3.2-5.5); ALBUMIN/GLOBULIN RATIO 1.2 (1.0-2.2); BILIRUBIN,TOTAL 0.8 mg/dL (0.2-1.0); CALCIUM 9.1 mg/dL (8.5-10.3); CREATININE 0.6 mg/dL (0.4-1.0); TOTAL PROTEIN 7.8 g/dL (6.7-8.2)
[2019-03-02 11:28] LABS: BILIRUBIN,URINE NEGATIVE (NEGATIVE); GLUCOSE, URINE (UA) NEGATIVE (NEGATIVE); KETONES,URINE (UA) NEGATIVE (NEGATIVE); LEUKOCYTE ESTERASE, URINE NEGATIVE (NEGATIVE); NITRITE,URINE NEGATIVE (NEGATIVE); OCCULT BLOOD,URINE NEGATIVE (NEGATIVE); PH,URINE 6.5 PH (5.0-7.5); PROTEIN,URINE NEGATIVE (NEGATIVE); UROBILINOGEN,URINE 0.2 (NORMAL) E.U./dL (NORMAL)
[2019-03-02 11:33] LABS: CLARITY,URINE CLEAR (CLEAR)
--- NOTE | 2019-03-02 12:15 | CT Report ---
Reason: generalized discomfort x 2 wks, LLQ tender Procedure Date: 03/02/2019 Accession Number: [id number] / [id number] Procedure: CT - Abdomen/Pelvis W CPT Code: FULL RESULT: EXAM: CT ABDOMEN AND PELVIS EXAM DATE: 03/02/2019 11:49 AM. CLINICAL HISTORY: Generalized discomfort x 2 wks, LLQ tender. COMPARISONS: ABDOMEN/PELVIS W/O 12/02/2016 7:57 AM. TECHNIQUE: Routine helical CT imaging was performed through the abdomen and pelvis. IV contrast: OPTI 320 100ML. Enteric contrast: No. Reconstructions: Coronal and sagittal. In accordance with CT protocol optimization, one or more of the following dose reduction techniques were utilized for this exam: automated exposure control, adjustment of mA and/or KV based on patient size, or use of iterative reconstructive technique. FINDINGS: Lung Bases: Unremarkable. Liver: Hepatomegaly 21 cm. Fatty infiltrated liver. Gallbladder/Bile Ducts: Post cholecystectomy. Common bile duct 1 cm likely due to postcholecystectomy status Spleen: Normal. Pancreas: Normal. Adrenal Glands: Bilateral adrenal nodule stable Kidneys: Right renal cyst. Peritoneal Cavity/Bowel: Diverticulosis. No free fluid, free air or adenopathy. No masses or acute inflammatory process. Appendix not identified. No pericecal inflammatory changes Pelvic Organs: Normal. The bladder and visualized pelvic organs are within normal limits. Vasculature: Atherosclerotic changes Bones: Status post lumbar fusion Other: None. IMPRESSION: 1. Diverticulosis. 2. Fatty hepatomegaly. 3. Right renal cyst 4. Appendix not identified but no pericecal inflammatory changes. 5. Stable bilateral adrenal nodules RADIA
[2019-03-02 13:04] VITALS: BP 142/73
== END 2019-03-02 13:04 | disposition home or self-care (01) ==
LOC: ED 10:30
DX: R10.32 Left lower quadrant pain (principal); R11.0 Nausea; K57.90 Diverticulosis of intestine, part unspecified, without perforation or abscess without bleeding; N28.1 Cyst of kidney, acquired; E27.8 Other specified disorders of adrenal gland; K76.0 Fatty (change of) liver, not elsewhere classified; Z87.19 Personal history of other diseases of the digestive system; Z90.49 Acquired absence of other specified parts of digestive tract; Z90.710 Acquired absence of both cervix and uterus; F17.200 Nicotine dependence, unspecified, uncomplicated
CPT/HCPCS: 36415; 74177; 80053; 81003; 83690; 85025; 99284; Q9967; 81001; 87086

== ENCOUNTER 2019-07-02 12:08 | Outpatient (CLI) | payer MEDICARE, OTHER ==
--- NOTE | 2019-07-07 14:57 | DEXA Report ---
Reason: FOREAM PREVIOUSLY DONE Procedure Date: 07/07/2019 Accession Number: [id number] / [id number] Procedure: DEX - Dexa Forearm CPT Code: Final Report FULL RESULT: EXAM: Dexa Forearm, Dexa Spine and/or Hip DATE: 07/07/2019 7:32 AM CLINICAL HISTORY: Postmenopausal. TECHNIQUE: Dual energy x-ray absorptiometry (DXA) was performed on a Laser View System. Regions measured are the femoral neck and forearm. COMPARISON: 06/02/2017 In accordance with the International Society for Clinical Densitometry (ISCD) guidelines, data from previous exams may be reanalyzed using current recommendations and techniques. This is done to allow a more accurate basis for comparison with the current study. FINDINGS: The data for the hip is as follows: BMD (g/cm/cm) T-SCORE Z-SCORE REGION Neck 0.575 -3.3 -1.5 TOTAL 0.722 -2.3 -0.7 NOTE: The femoral neck or total proximal femur, whichever is lowest, is used for classification. The data for the left forearm is as follows: BMD (g/cm/cm) T-SCORE Z-SCORE REGION 1/3 0.673 -2.3 -0.4 NOTE: The 33% radius of the nondominant forearm is used for classification. DXA RESULTS SUMMARY: Hip SCAN DATE AGE BMD CHANGE VS CHANGE VS PREVIOUS PREVIOUS % [birth year]02[birth year]2019 [age] 0.722 -0.029 -3.9 06/02/2017 [age] 0.751 * Denotes significant change at the 95% confidence level. Denotes dissimilar scan types or analysis methods. DXA RESULTS SUMMARY: Forearm SCAN DATE AGE BMD CHANGE VS CHANGE VS PREVIOUS PREVIOUS % [birth year]02[birth year]2019 69.0 0.673 0.014 2.1 06/02/2017 66.9 0.659 * Denotes significant change at the 95% confidence level. Denotes dissimilar scan types or analysis methods. IMPRESSION: THE WHO CLASSIFICATION BASED ON THE INTERNATIONAL REFERENCE STANDARD IS OSTEOPOROSIS. THE FRACTURE RISK IS HIGH. RECOMMENDATION: Patients with diagnosis of osteoporosis or osteopenia should have regular bone mineral density assessment. For those eligible for Medicare, routine testing is allowed once every 2 years. Testing frequency can be increased for patients who have rapidly progressing disease or for those who are receiving medical therapy to restore bone mass. COMMENT: World Health Organization (WHO) definitions for osteoporosis and osteopenia: NORMAL BMD: T-score at -1.0 or higher, fracture risk is low OSTEOPENIA BMD: T-score between -1.0 and -2.5, fracture risk is increased. OSTEOPOROSIS BMD: T-score at -2.5 or lower, fracture risk is high. National Osteoporosis Foundation recommends: 1. Obtain adequate dietary calcium (at least 1200 mg per day) and vitamin D (400-800 international units per day). 2. Participate, as appropriate, in regular weightbearing and muscle-strengthening exercise. 3. Avoid tobacco use and reduce alcohol and caffeine intake. 4. For more detailed information see the website at www.NOF.org.
--- NOTE | 2019-07-07 14:57 | DEXA Report ---
Reason: POSTMENOPAUSAL Procedure Date: 07/02/2019 Accession Number: [id number] / [id number] Procedure: DEX - Dexa Spine and/or Hip CPT Code: Final Report FULL RESULT: EXAM: Dexa Forearm, Dexa Spine and/or Hip DATE: 07/07/2019 7:32 AM CLINICAL HISTORY: Postmenopausal. TECHNIQUE: Dual energy x-ray absorptiometry (DXA) was performed on a [employer] System. Regions measured are the femoral neck and forearm. COMPARISON: 06/02/2017 In accordance with the International Society for Clinical Densitometry (ISCD) guidelines, data from previous exams may be reanalyzed using current recommendations and techniques. This is done to allow a more accurate basis for comparison with the current study. FINDINGS: The data for the hip is as follows: BMD (g/cm/cm) T-SCORE Z-SCORE REGION Neck 0.575 -3.3 -1.5 TOTAL 0.722 -2.3 -0.7 NOTE: The femoral neck or total proximal femur, whichever is lowest, is used for classification. The data for the left forearm is as follows: BMD (g/cm/cm) T-SCORE Z-SCORE REGION 1/3 0.673 -2.3 -0.4 NOTE: The 33% radius of the nondominant forearm is used for classification. DXA RESULTS SUMMARY: Hip SCAN DATE AGE BMD CHANGE VS CHANGE VS PREVIOUS PREVIOUS % [birth year]02[birth year]2019 69.0 0.722 -0.029 -3.9 06/02/2017 66.9 0.751 * Denotes significant change at the 95% confidence level. Denotes dissimilar scan types or analysis methods. DXA RESULTS SUMMARY: Forearm SCAN DATE AGE BMD CHANGE VS CHANGE VS PREVIOUS PREVIOUS % [birth year]02/2019 69.0 0.673 0.014 2.1 [birth year]/02/2017 66.9 0.659 * Denotes significant change at the 95% confidence level. Denotes dissimilar scan types or analysis methods. IMPRESSION: THE WHO CLASSIFICATION BASED ON THE INTERNATIONAL REFERENCE STANDARD IS OSTEOPOROSIS. THE FRACTURE RISK IS HIGH. RECOMMENDATION: Patients with diagnosis of osteoporosis or osteopenia should have regular bone mineral density assessment. For those eligible for Medicare, routine testing is allowed once every 2 years. Testing frequency can be increased for patients who have rapidly progressing disease or for those who are receiving medical therapy to restore bone mass. COMMENT: World Health Organization (WHO) definitions for osteoporosis and osteopenia: NORMAL BMD: T-score at -1.0 or higher, fracture risk is low OSTEOPENIA BMD: T-score between -1.0 and -2.5, fracture risk is increased. OSTEOPOROSIS BMD: T-score at -2.5 or lower, fracture risk is high. National Osteoporosis Foundation recommends: 1. Obtain adequate dietary calcium (at least 1200 mg per day) and vitamin D (400-800 international units per day). 2. Participate, as appropriate, in regular weightbearing and muscle-strengthening exercise. 3. Avoid tobacco use and reduce alcohol and caffeine intake. 4. For more detailed information see the website at www.NOF.org.
== END 2019-07-02 12:09 | disposition home or self-care (01) ==
LOC: DI 12:08
PROVIDERS: ATTEND Nurse Practitioner
DX: M81.0 Age-related osteoporosis without current pathological fracture (principal)
CPT/HCPCS: 77080; 77081

== ENCOUNTER 2019-07-02 12:10 | Outpatient (CLI) | payer MEDICARE, OTHER ==
--- NOTE | 2019-07-07 12:58 | Mammography Report ---
Reason: ROUTINE MAMMO Procedure Date: 07/02/2019 Accession Number: [id number] / [id number] Procedure: ARACELY - Screening Mammo w/Joe CPT Code: Final Report FULL RESULT: EXAM: Screening Mammo w/Joe DATE: 07/02/2019 12:52 PM CLINICAL HISTORY: The patient is an asymptomatic 69-year-old female. Nulliparous. Sister with breast cancer. TECHNIQUE: (B) - Bilateral CC and MLO views were obtained. COMPARISON: 07/01/2017, 06/02/2017 01/09/2016, 11/11/2014, 08/17/2013, 05/05/2012 PARENCHYMAL PATTERN: (D) - The breasts demonstrate heterogeneously dense fibroglandular parenchyma bilaterally. FINDINGS: The pattern of nodular asymmetry is stable given positional variation. Few benign calcifications again identified in both breasts. There are no suspicious masses, calcifications, or areas of distortion. IMPRESSION: Benign findings. BI-RADS category 2. RECOMMENDATION: (ANNUAL) - Recommend routine annual screening mammography. BI-RADS CATEGORY: (2) - Benign Findings. STANDARD QUALIFYING STATEMENTS: A negative or benign imaging report should not preclude biopsy if clinically suspicious findings are present. Dense breasts may obscure an underlying neoplasm. This examination was reviewed with the aid of 3D breast imaging (tomosynthesis).
== END 2019-07-02 12:11 | disposition home or self-care (01) ==
LOC: DI 12:10
DX: Z12.31 Encounter for screening mammogram for malignant neoplasm of breast (principal); Z80.3 Family history of malignant neoplasm of breast
CPT/HCPCS: 77063; 77067

== ENCOUNTER 2020-04-15 10:33 | Outpatient (CLI) | payer MEDICARE, OTHER ==
[2020-04-15 15:01] LABS: BASOPHILS # (AUTO) 0.1 10^3/uL (0.0-0.1); BASOPHILS % (AUTO) 0.9 %; EOSINOPHILS # (AUTO) 0.2 10^3/uL (0.0-0.7); EOSINOPHILS % (AUTO) 2.6 %; HGB - HEMOGLOBIN 14.6 g/dL (12.0-16.0); LYMPHOCYTES # (AUTO) 3.4 10^3/uL (1.5-3.5); LYMPHOCYTES % (AUTO) 52.2 %; MEAN CORPUSCULAR HEMOGLOBIN 30.5 pg (27.0-31.0); MEAN CORPUSCULAR HGB CONC 32.8 g/dL (32.0-36.0); MEAN CORPUSCULAR VOLUME 93.1 fL (81.0-99.0); MEAN PLATELET VOLUME 10.9 fL (7.9-10.8); MONOCYTES # (AUTO) 0.8 10^3/uL (0.0-1.0); MONOCYTES % (AUTO) 12.1 %; NEUTROPHILS # (AUTO) 2.1 10^3/uL (1.5-6.6); PLT - PLATELET COUNT 298 10^3/uL (130-450); RED BLOOD COUNT 4.78 10^6/uL (4.20-5.40); RED CELL DISTRIBUTION WIDTH 12.3 % (12.0-15.0); WHITE BLOOD COUNT 6.5 x10^3/uL (4.8-10.8)
[2020-04-15 15:16] LABS: ALBUMIN 4.4 g/dL (3.2-5.5); ALBUMIN/GLOBULIN RATIO 1.4 (1.0-2.2); BILIRUBIN,TOTAL 0.8 mg/dL (0.2-1.0); CALCIUM 9.4 mg/dL (8.5-10.3); CREATININE 0.6 mg/dL (0.4-1.0); TOTAL PROTEIN 7.5 g/dL (6.7-8.2)
== END 2020-04-15 10:34 | disposition home or self-care (01) ==
LOC: LAB.S 10:33
PROVIDERS: ATTEND Family Medicine
DX: R10.13 Epigastric pain (principal); R19.4 Change in bowel habit
CPT/HCPCS: 36415; 80053; 82150; 83690; 85025

== ENCOUNTER 2020-05-02 10:58 | Outpatient (CLI) | payer MEDICARE, OTHER ==
[2020-05-02] MEDS ORDERED: IOVERSOL 320 50 ML VIAL ONE (11:10)
[2020-05-02] MEDS ORDERED: IOVERSOL 320 100 ML VIAL IVP ONE ×2 (11:10→13:59)
[2020-05-02 11:27] LABS: ALBUMIN 4.2 g/dL (3.2-5.5); ALBUMIN/GLOBULIN RATIO 1.4 (1.0-2.2); BILIRUBIN,TOTAL 0.8 mg/dL (0.2-1.0); CALCIUM 9.2 mg/dL (8.5-10.3); CREATININE 0.6 mg/dL (0.4-1.0); TOTAL PROTEIN 7.3 g/dL (6.7-8.2)
--- NOTE | 2020-05-02 13:40 | CT Report ---
PROCEDURE: Abdomen/Pelvis W INDICATIONS: TOBACCO USE, ABD PAIN,EPIGASTRIC PAIN,CHANGE IN ASHLY CONTRAST: IV CONTRAST: Optiray 320 ml: 100 PO CONTRAST: Optiray 320 ml50 TECHNIQUE: After the administration of IV and oral contrast, 5 mm thick sections acquired from the diaphragms to the symphysis. 5 mm thick coronal and sagittal reformats were acquired. For radiation dose reducti on, the following was used: automated exposure control, adjustment of mA and/or kV according to santos ent size. COMPARISON: CT examination dated 03.02.19 FINDINGS: Image quality: Excellent. ABDOMEN: Lung bases: Lung bases are clear. Heart size is normal. Solid organs: Liver and spleen are normal in size and enhancement. Gallbladder is surgically absent Biliary system is non dilated. Pancreas enhances normally. No change in low-density bilateral adr enal nodules adrenal nodules which demonstrate postcontrast Hounsfield units of roughly 50 bilaterall y. Kidneys demonstrate normal size and enhancement, without hydronephrosis. Peritoneum and bowel: Diverticulosis of the descending and sigmoid colon. Bowel loops demonstrate ot herwise normal wall thickness and caliber. No free fluid or air. Nodes and vessels: No retroperitoneal or mesenteric adenopathy by size criteria. Aorta and inferior vena cava are normal in size. Miscellaneous: No ventral hernias. PELVIS: Genitourinary: Bladder wall thickness is normal. Miscellaneous: No inguinal hernias or adenopathy. Bones: No suspicious bony lesions. L5-S1 fusion. No vertebral body compression fractures. IMPRESSION: 1. No acute process. 2. No change in bilateral adrenal nodules. Reviewed by: Maury Ovalle MD on 05/02/2020 1:39 PM PST Approved by: Maury Ovalle MD on 05/02/2020 1:39 PM PST Station ID: [id number]
--- NOTE | 2020-05-02 13:52 | CT Report ---
PROCEDURE: Low Dose Lung Cancer Screen INDICATIONS: TOBACCO USE TECHNIQUE: Noncontrast low-dose 5 mm thick sections acquired from the pulmonary apices to the posterior costophr enic angles. 7 mm thick coronal and sagittal MIP reformats were then acquired. For radiation dose r eduction, the following was used: automated exposure control, adjustment of mA and/or kV according t o patient size. COMPARISON: None. FINDINGS: Image quality: Excellent. Lungs and pleura: No evidence of pneumonia, nor edema. No pulmonary nodules. Mediastinum: Heart size is normal. No pericardial effusion. No mediastinal adenopathy by size crit eria. Thoracic aorta and central pulmonary arteries are normal in size. Esophagus is normal in tamara ruy. No hiatal hernia. Bones and chest wall: No suspicious bony lesions. No vertebral body compression fractures. No axil gio or supraclavicular adenopathy by size criteria. The thyroid is normal in size. Abdomen: Visualized portions of the upper abdomen demonstrate a 30 mm right adrenal nodule and a 40 mm left adrenal nodule. These nodules both demonstrate Hounsfield units of less than 10. IMPRESSION: 1. No evidence of malignancy. Lung RADS 1; repeat screening chest CT in one year. 2. Benign bilateral adrenal adenomata. Reviewed by: Maury Ovalle MD on 05/02/2020 1:50 PM PST Approved by: Maury Ovalle MD on 05/02/2020 1:50 PM PST Station ID: [id number]
[2020-05-02] MEDS ORDERED: IOVERSOL 320 50 ML VIAL PO ONE (13:58)
== END 2020-05-02 10:59 | disposition home or self-care (01) ==
LOC: LAB 10:58
PROVIDERS: ATTEND Family Medicine
DX: R10.13 Epigastric pain (principal); R19.4 Change in bowel habit; Z12.2 Encounter for screening for malignant neoplasm of respiratory organs; Z87.891 Personal history of nicotine dependence; D35.02 Benign neoplasm of left adrenal gland; D35.01 Benign neoplasm of right adrenal gland
CPT/HCPCS: 36415; 74177; 80053; G0297; Q9967

== ENCOUNTER 2020-06-02 15:58 | Outpatient (CLI) | payer MEDICARE, OTHER | END 2020-06-02 15:59 | disposition home or self-care (01) | LOC: COV 15:58 | PROVIDERS: ATTEND Surgery | DX: Z01.812 Encounter for preprocedural laboratory examination (principal); R63.4 Abnormal weight loss; Z86.010 Personal history of colon polyps; Z20.828 Contact with and (suspected) exposure to other viral communicable diseases ==

== ENCOUNTER 2020-06-08 08:06 | Day surgery (SDC) | payer MEDICARE, OTHER ==
[2020-06-08] MEDS ORDERED: LACTATED RINGERS 1,000 ML IV ONE ×2 (08:19→11:28)
[2020-06-08] MEDS ORDERED: fentaNYL 100 MCG/2 ML VIAL IVP ONE (10:40)
[2020-06-08] MEDS ORDERED: MIDAZOLAM 2 MG/2 ML VIAL IVP ONE (10:40)
[2020-06-08] MEDS ORDERED: LIDO GARGLE 30 ML BOTTLE ONE (10:44)
[2020-06-08] MEDS ORDERED: BENZOCAINE/TETRACAINE/BUTAMBEN 20 GM TOP ONE (10:50)
[2020-06-08] MEDS ORDERED: LIDO GARGLE 30 ML BOTTLE TOP ONE (10:50)
[2020-06-08 11:53] VITALS: BP 126/70
== END 2020-06-08 08:07 | disposition home or self-care (01) ==
LOC: SDS 08:06
PROVIDERS: ATTEND Surgery
PROC: 0DBN8ZZ Excision of Sigmoid Colon, Via Natural or Artificial Opening Endoscopic (ICD-10-PCS; principal; 2020-06-08 09:15)
PROC: 0DB38ZX Excision of Lower Esophagus, Via Natural or Artificial Opening Endoscopic, Diagnostic (ICD-10-PCS; 2020-06-08 09:15)
DX: K63.5 Polyp of colon (principal); K29.70 Gastritis, unspecified, without bleeding; K20.90 Esophagitis, unspecified without bleeding; K57.30 Diverticulosis of large intestine without perforation or abscess without bleeding; K29.80 Duodenitis without bleeding; K64.4 Residual hemorrhoidal skin tags; K64.8 Other hemorrhoids; R63.4 Abnormal weight loss; Z68.21 Body mass index [BMI] 21.0-21.9, adult; F10.10 Alcohol abuse, uncomplicated; E89.0 Postprocedural hypothyroidism; K58.0 Irritable bowel syndrome with diarrhea; R73.9 Hyperglycemia, unspecified; J43.9 Emphysema, unspecified
CPT/HCPCS: 43239; 45380; A9270; J7120

== ENCOUNTER 2020-07-17 08:11 | Outpatient (CLI) | payer MEDICARE, OTHER | END 2020-07-17 08:12 | disposition home or self-care (01) | LOC: LAB.S 08:11 | PROVIDERS: ATTEND Internal Medicine Endocrinology, Diabetes & Metabolism | DX: E27.8 Other specified disorders of adrenal gland (principal) | CPT/HCPCS: 36415; 82533 ==

== ENCOUNTER 2020-11-07 12:11 | Outpatient (CLI) | payer MEDICARE, OTHER | END 2020-11-07 12:12 | disposition short-term general hospital (02) | LOC: EMS 12:11 | DX: R51.9 Headache, unspecified (principal); R11.2 Nausea with vomiting, unspecified | CPT/HCPCS: A0425; A0427 ==

== ENCOUNTER 2021-03-22 10:35 | Outpatient (CLI) | payer MEDICARE, OTHER | END 2021-03-22 23:59 | disposition home or self-care (01) | LOC: LAB.S 10:35 | PROVIDERS: ATTEND Physician Assistant Medical | DX: R10.9 Unspecified abdominal pain (principal) | CPT/HCPCS: 87086 ==

== ENCOUNTER 2021-05-11 08:52 | Outpatient (CLI) | payer MEDICARE, OTHER ==
[2021-05-11 15:24] LABS: BASOPHILS # (AUTO) 0.1 10^3/uL (0.0-0.1); BASOPHILS % (AUTO) 0.7 %; EOSINOPHILS # (AUTO) 0.2 10^3/uL (0.0-0.7); EOSINOPHILS % (AUTO) 2.1 %; HCT - HEMATOCRIT 43.5 % (37.0-47.0); HGB - HEMOGLOBIN 14.1 g/dL (12.0-16.0); LYMPHOCYTES # (AUTO) 2.7 10^3/uL (1.5-3.5); LYMPHOCYTES % (AUTO) 34.7 %; MEAN CORPUSCULAR HEMOGLOBIN 30.7 pg (27.0-31.0); MEAN CORPUSCULAR HGB CONC 32.4 g/dL (32.0-36.0); MEAN CORPUSCULAR VOLUME 94.6 fL (81.0-99.0); MEAN PLATELET VOLUME 10.7 fL (7.9-10.8); MONOCYTES # (AUTO) 0.6 10^3/uL (0.0-1.0); MONOCYTES % (AUTO) 7.2 %; NEUTROPHILS # (AUTO) 4.2 10^3/uL (1.5-6.6); NEUTROPHILS % (AUTO) 54.9 %; PLT - PLATELET COUNT 287 10^3/uL (130-450); RED CELL DISTRIBUTION WIDTH 12.4 % (12.0-15.0); WHITE BLOOD COUNT 7.6 x10^3/uL (4.8-10.8)
[2021-05-11 15:45] LABS: ALBUMIN 4.2 g/dL (3.2-5.5); ALBUMIN/GLOBULIN RATIO 1.4 (1.0-2.2); BILIRUBIN,TOTAL 0.7 mg/dL (0.2-1.0); CREATININE 0.6 mg/dL (0.4-1.0); TOTAL PROTEIN 7.3 g/dL (6.7-8.2)
== END 2021-05-11 08:53 | disposition home or self-care (01) ==
LOC: LAB.S 08:52
PROVIDERS: ATTEND Internal Medicine
DX: I10 Essential (primary) hypertension (principal)
CPT/HCPCS: 36415; 80053; 85025

== ENCOUNTER 2021-08-15 09:51 | Outpatient (CLI) | payer MEDICARE, OTHER ==
--- NOTE | 2021-08-16 07:48 | Mammography Report ---
BILATERAL DIGITAL SCREENING MAMMOGRAM 3D/2D: 08/15/2021 CLINICAL: Routine screening. Family history of breast cancer. Comparison is made to exams dated: 07/02/2019 mammogram, 07/01/2017 mammogram, 06/02/2017 mammogram, 01/08 mammogram, 11/11/2014 mammogram, and 08/17/2013 mammogram - [facility]. The ti ssue of both breasts is heterogeneously dense. This may lower the sensitivity of mammography. There is a 1.3 cm oval equal density focal asymmetry in the right breast at 1 o'clock middle depth. This is more prominent and increased in size. No other significant masses, calcifications, or other findings are seen in either breast. IMPRESSION: INCOMPLETE: NEEDS ADDITIONAL IMAGING EVALUATION The 1.3 cm oval equal density focal asymmetry in the right breast is indeterminate. Additional views with possible ultrasound are recommended. This exam was interpreted at Station ID: [id number]. NOTE: For mammograms, a report in lay terms will be sent to the patient. Approximately 15% of breast malignancies will not be visualized mammographically. In the management of a palpable breast mass, a negative mammogram must not discourage biopsy of a clinically suspicious lesion. Electronically Signed By: Tramaine Rios M.D. aty/:08/15/2021 10:38:02 ACR BI-RADS Category 0: Incomplete 3340F PARENCHYMAL PATTERN: (D) - The breast(s) demonstrate(s) heterogeneously dense fibroglandular [place] ma. BI-RADS CATEGORY: (0) - 0 Mammo and [place] [id number] Immediate follow-up LATERALITY: (R)
== END 2021-08-15 09:52 | disposition home or self-care (01) ==
LOC: DI.S 09:51
PROVIDERS: ATTEND Internal Medicine
DX: Z12.31 Encounter for screening mammogram for malignant neoplasm of breast (principal); R92.8 Other abnormal and inconclusive findings on diagnostic imaging of breast; Z80.3 Family history of malignant neoplasm of breast

== ENCOUNTER 2021-09-10 10:43 | Outpatient (CLI) | payer MEDICARE, OTHER ==
--- NOTE | 2021-09-10 11:51 | DEXA Report ---
PROCEDURE: Dexa Spine and/or Hip INDICATIONS: OSTEOPOROSIS TECHNIQUE: Dual energy x-ray absorptiometry (DXA) was performed on a [employer] System. Regions measur ed are the AP Spine, femoral neck, and if needed forearm. COMPARISON: 07/02/2019. FINDINGS: Left Hip: Bone Mineral Density 0.640 g/cm/cm,T score -2.9, osteoporosis Left Femoral Neck: Bone Mineral Density 0.511 g/cm/cm, T score -3.8, osteoporosis Left distal radius: Bone Mineral Density 0.536 g/cm/cm, T score -2.3, osteopenia IMPRESSION: Osteoporosis on the basis of low bone mineral density in the left hip and left femoral neck. Statisti kaitlin significant bone mineral density decrease (11.4%) when compared with 07/02/2019 study. Patients with diagnosis of osteoporosis or osteopenia should have regular bone mineral density assess ment. For those eligible for Medicare, routine testing is allowed once every 2 years. Testing frequ ency can be increased for patients who have rapidly progressing disease or for those who are receivin g medical therapy to restore bone mass. Reviewed by: Satnos Luna MD on 09/10/2021 11:50 AM PDT Approved by: Santos Luna MD on 09/10/2021 11:50 AM PDT Station ID: [id number]
== END 2021-09-10 10:44 | disposition home or self-care (01) ==
LOC: DI 10:43
PROVIDERS: ATTEND Internal Medicine
DX: M81.0 Age-related osteoporosis without current pathological fracture (principal)

== ENCOUNTER 2021-12-10 19:17 | Emergency (ER) | payer MEDICARE, OTHER ==
[2021-12-10 19:29] LABS: BASOPHILS # (AUTO) 0.1 10^3/uL (0.0-0.1); BASOPHILS % (AUTO) 0.5 %; EOSINOPHILS # (AUTO) 0.1 10^3/uL (0.0-0.7); EOSINOPHILS % (AUTO) 0.5 %; HCT - HEMATOCRIT 41.7 % (37.0-47.0); HGB - HEMOGLOBIN 13.9 g/dL (12.0-16.0); LYMPHOCYTES # (AUTO) 2.6 10^3/uL (1.5-3.5); LYMPHOCYTES % (AUTO) 18.3 %; MEAN CORPUSCULAR HGB CONC 33.3 g/dL (32.0-36.0); MEAN CORPUSCULAR VOLUME 92.9 fL (81.0-99.0); MEAN PLATELET VOLUME 9.7 fL (7.9-10.8); MONOCYTES # (AUTO) 1.3 10^3/uL (0.0-1.0); MONOCYTES % (AUTO) 9.1 %; NEUTROPHILS % (AUTO) 71.3 %; PLT - PLATELET COUNT 255 10^3/uL (130-450); RED BLOOD COUNT 4.49 10^6/uL (4.20-5.40)
[2021-12-10 19:43] LABS: ALBUMIN/GLOBULIN RATIO 1.1 (1.0-2.2); BILIRUBIN,TOTAL 0.9 mg/dL (0.2-1.0); CREATININE 0.6 mg/dL (0.4-1.0); POTASSIUM 3.8 mmol/L (3.5-5.0); TOTAL PROTEIN 7.5 g/dL (6.7-8.2)
[2021-12-10 20:18] LABS: BILIRUBIN,URINE NEGATIVE (NEGATIVE); GLUCOSE, URINE (UA) NEGATIVE (NEGATIVE); KETONES,URINE (UA) NEGATIVE (NEGATIVE); LEUKOCYTE ESTERASE, URINE NEGATIVE (NEGATIVE); NITRITE,URINE NEGATIVE (NEGATIVE); OCCULT BLOOD,URINE SMALL (NEGATIVE); PROTEIN,URINE NEGATIVE (NEGATIVE); UROBILINOGEN,URINE 0.2 (NORMAL) E.U./dL (NORMAL)
[2021-12-10 20:21] LABS: CLARITY,URINE HAZY (CLEAR)
[2021-12-10 20:36] LABS: BACTERIA,URINE None Seen /HPF (None Seen); SQUAMOUS EPITHELIAL CELL,UR NONE SEEN (<= Few); WBC,URINE 0-3 /HPF (0-5)
[2021-12-10] MEDS ORDERED: MORPHINE 2 MG/ML CARPUJECT IVP STA (20:36)
[2021-12-10] MEDS ORDERED: SODIUM CHLORIDE 0.9% 1,000 ML IV STA (20:36)
[2021-12-10] MEDS ORDERED: ONDANSETRON 4 MG/2 ML VIAL IVP STA (20:36)
--- NOTE | 2021-12-10 20:51 | ED Physician Documentation ---
PD HPI ABD PAIN - Stated complaint Stated Complaint: ABD PX - Chief complaint Chief Complaint: Abd Pain - History obtained from History obtained from: Patient - Additional information Additional information: Patient is a 71-year-old female with a history of diverticulitis and previous hysterectomy presenting for evaluation of lower abdominal pain that has been present since Friday. Pain is intermittent but becoming more constant. It is sharp at times and otherwise dull. Nothing makes it better or worse. She denies nausea or vomiting. Her last bowel movement was yesterday morning and more firm than usual. She denies blood in stools. She denies dysuria, hematuria, back pain. She denies fever, chest pain or difficulty breathing. She was seen at a walk-in clinic and recommended to come to the emergency department for evaluation. She denies a history of small bowel obstruction in the past. Review of Systems Constitutional: denies: Fever Nose: denies: Congestion Cardiac: denies: Chest pain / pressure Respiratory: denies: Dyspnea, Cough GI: reports: Abdominal Pain. 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 : None HEENT: None Psych: Depression Musculoskeletal: Osteoarthritis, Chronic back pain Derm: None - Past Surgical History Past Surgical History: Yes General: Cholecystectomy, Appendectomy, Colonoscopy Ortho: Spine surgery, Other /PHOTOGRAPHIC TECHNICIAN: Hysterectomy HEENT: Cataracts - Present Medications Home Medications: Ambulatory Orders Medication Instructions Recorded Confirmed Levothyroxine [Synthroid] 175 mcg PO QDAC 03/30/13 06/08/20 Sertraline [Zoloft] 150 mg PO DAILY 03/30/13 06/08/20 Multivitamin 1 each PO DAILY 06/07/20 06/08/20 Amox/Clav 875/125 [Augmentin] 1 each PO Q12H #20 tablet 12/10/21 - Allergies Allergies/Adverse Reactions: Allergies Allergy/AdvReac Type Severity Reaction Status Date / Time morphine AdvReac Mild Hallucinati Verified 12/10/21 19:30 ons - Social History Does the pt smoke?: Yes Smoking Status: Current every day smoker Does the pt drink ETOH?: Yes Does the pt have substance abuse?: No - Immunizations Immunizations are current?: Yes - POLST Patient has POLST: No PD ED PE NORMAL - General General: Alert and oriented X 3, No acute distress, Well developed/nourished - HEENT HEENT: Atraumatic, Moist mucous membranes - Neck Neck: Supple, no meningeal sign - Cardiac Cardiac: RRR, No murmur, Strong equal pulses - Respiratory Respiratory: No respiratory distress, Clear bilaterally - Abdomen Abdomen: Normal bowel sounds, Soft, Non distended, Other (Left-sided abdominal tenderness to palpation, no rebound, no guarding, no palpable masses) - Back Back: No CVA TTP - Derm Derm: No rash - Extremities Extremities: No edema - Neuro Neuro: Normal speech - Psych Psych: Normal mood Results - Vitals Vitals: Vital Signs - 24 hr 12/10/21 12/10/21 12/10/21 19:28 21:43 22:20 Temperature 36.3 C L Heart Rate 86 79 85 Respiratory 18 18 16 Rate Blood Pressure 121/61 116/63 127/59 L O2 Saturation 99 98 96 Oxygen O2 Source Room air - Labs Labs: Laboratory Tests 12/10/21 12/10/21 12/10/21 19:25 19:25 20:11 WBC 14.0 H RBC 4.49 Hgb 13.9 Hct 41.7 MCV 92.9 MCH 31.0 MCHC 33.3 RDW 12.0 Plt Count 255 MPV 9.7 Neut # (Auto) 10.0 H Lymph # (Auto) 2.6 [place] # (Auto) 1.3 H Eos # (Auto) 0.1 Baso # (Auto) 0.1 Absolute Nucleated RBC 0.00 Nucleated RBC % 0.0 Sodium 135 Potassium 3.8 Chloride 99 L Carbon Dioxide 27 Anion Gap 9.0 BUN 12 Creatinine 0.6 Estimated GFR (MDRD) 98 Glucose 113 H Calcium 9.0 Total Bilirubin 0.9 AST 17 ALT 16 Alkaline Phosphatase 77 Total Protein 7.5 Albumin 4.0 Globulin 3.5 Albumin/Globulin Ratio 1.1 Lipase 30 Urine Color YELLOW Urine Clarity HAZY Urine pH 6.0 Ur Specific [place] 1.010 Urine Protein NEGATIVE Urine Glucose (UA) NEGATIVE Urine Ketones NEGATIVE Urine Occult Blood SMALL H Urine Nitrite NEGATIVE Urine Bilirubin NEGATIVE Urine Urobilinogen 0.2 (NORMAL) Ur Leukocyte Esterase NEGATIVE Urine RBC 6-10 H Urine WBC 0-3 Ur Squamous Epith Cells NONE SEEN Urine Bacteria None Seen Ur Microscopic Review INDICATED Urine Culture Comments NOT INDICATED PD MEDICAL DECISION MAKING - ED course Complexity details: reviewed results, re-evaluated patient, d/w patient, d/w family ED course: Patient with lower abdominal pain. Vital signs are stable. Labs are reassuring. CT scan with diverticulitis. Patient is a nontoxic, and well- appearing. Believe she is appropriate for trial of p.o. antibiotics for infection. No abscess or perforation seen. Patient was advised on CT findings and course of treatment. She is comfortable with plan for discharge and aware of return precautions. I did offer pain medication and nausea medication which patient declined prescriptions for. Departure - Departure Disposition: Home, Self Care Clinical Impression: Sigmoid diverticulitis Condition: Stable Instructions: ED Diverticulitis Prescriptions: Amox/Clav 875/125 [Augmentin] 1 each PO Q12H #20 tablet Comments: Your evaluated for lower abdominal pain and found to have diverticulitis. I have started you on an antibiotic to help with this infection and have also sent a prescription to [facility] in [place]. Please belt picker the prescription in the morning and continue taking as prescribed. Please also have close follow-up with your doctor and return to the ER if you develop any worsening symptoms such as fever, increased pain, vomiting or have other concerns. Discharge Date/Time: 12/10/21 22:26
[2021-12-10] MEDS ORDERED: HYDROmorphone 1 MG/ML CARPUJECT IVP STA (21:30)
--- NOTE | 2021-12-10 22:01 | CT Report ---
PROCEDURE: Abdomen/Pelvis WO INDICATIONS: abd pain TECHNIQUE: Noncontrast 5 mm thick sections acquired from the diaphragms to the symphysis. 5 mm coronal and sagi ttal reformats were then performed. For radiation dose reduction, the following was used: automated exposure control, adjustment of mA and/or kV according to patient size. COMPARISON: CT abdomen pelvis 05/02/2020, 03/02/2019. FINDINGS: Image quality: There is motion artifact limiting evaluation. Streak artifact also present secondary t o patient's surgical hardware in the lumbar spine. Lung bases:There are moderate centrilobular densities within the visualized lung bases. Bibasilar sc arring and atelectasis are also demonstrated. Heart: Heart is normal in size. ABDOMEN: Liver:Noncontrast evaluation demonstrates no discrete hepatic mass. Gallbladder:Surgically absent. Biliary ducts: No biliary ductal dilatation. Pancreas: Unremarkable. Spleen: Normal in size. Adrenal Glands:There are bilateral adrenal nodules measuring up to approximately 3.4 cm on the right and 4.0 cm on the left which appear similar in size compared to the prior studies. These demonstrate attenuation values consistent with lipid rich adenomas. Kidneys and Ureters: No hydronephrosis.There is an exophytic right renal cyst redemonstrated. Stomach and Bowel: Stomach and small bowel loops are normal in caliber and wall thickness. The appen jessica is not discretely well visualized with evaluation limited in the absence of intravenous contrast. No definite evidence of acute appendicitis. There is colonic diverticulosis with associated divertic ular and segmental colonic wall thickening in the sigmoid colon with pericolonic fat stranding and sm all amount of free fluid consistent with acute diverticulitis. No discrete diverticular abscess or ma croscopic free air. Peritoneum: No abnormal intraperitoneal fluid. No free air. Ventral Wall: No hernia. Abdominal Nodes: No retroperitoneal or mesenteric adenopathy by size criteria. Vessels: Aorta and inferior vena cava are normal in size. PELVIS: Pelvic Organs:Uterus appears surgically absent. Bladder: Unremarkable. Pelvic Nodes: No enlarged lymph nodes. Miscellaneous: No inguinal hernias are seen. Bones: Visualized osseous structures demonstrate no suspicious focal lesions. IMPRESSION: 1. Sigmoid diverticulitis without definite evidence of diverticular abscess or macroscopic free air. 2. Bilateral adrenal mass lesions appear similar in size to the prior studies and demonstrate attenua tion values consistent with lipid rich adenomas. Reviewed by: Alton Black MD on 12/10/2021 10:00 PM PDT Approved by: Alton Black MD on 12/10/2021 10:00 PM PDT Station ID: [id number]
[2021-12-10] MEDS ORDERED: AMOX/CLAV 875 MG/125 MG TABLET PO STA (22:04)
[2021-12-10 22:21] VITALS: BP 127/59
== END 2021-12-10 22:26 | disposition home or self-care (01) ==
LOC: ED 19:17
DX: K57.32 Diverticulitis of large intestine without perforation or abscess without bleeding (principal); F17.200 Nicotine dependence, unspecified, uncomplicated
CPT/HCPCS: 36415; 74176; 80053; 81001; 83690; 85025; 96374; 99283; 99284; A9270; J1170; 81003; 87086

== ENCOUNTER 2022-04-22 08:00 | Outpatient (CLI) | payer MEDICARE, OTHER ==
--- NOTE | 2022-04-22 16:41 | XRAY Report ---
PROCEDURE: Ankle 3 View RT INDICATIONS: RIGHT ANKLE PAIN TECHNIQUE: 3 views of the ankle were acquired. COMPARISON: None FINDINGS: Bones: Subtle cortical irregularity involving tip of lateral malleolus is seen, concerning for tiny a vulsion injury in this area. No other fracture or dislocation. Ankle mortise is normally aligned. No suspicious bony lesions. Soft tissues: Significant lateral ankle soft tissue swelling is seen. No tibiotalar joint effusion. Achilles tendon appears normal. IMPRESSION: Suggestion of avulsion injury involving tip of lateral malleolus with overlying soft tis mckenna swelling. No other fracture or dislocation. Intact ankle mortise. Reviewed by: Rene Au MD on 04/22/2022 4:40 PM PDT Approved by: Rene Au MD on 04/22/2022 4:40 PM PDT Station ID: [id number]
== END 2022-04-22 23:59 | disposition home or self-care (01) ==
LOC: DI.S 08:00
PROVIDERS: ATTEND Physician Assistant
DX: M25.571 Pain in right ankle and joints of right foot (principal)

== ENCOUNTER 2022-06-29 08:58 | Outpatient (CLI) | payer MEDICARE, OTHER ==
--- NOTE | 2022-07-02 14:18 | MRI Report ---
PROCEDURE: ANKLE WO - RT INDICATIONS: RIGHT ANKLE PAIN TECHNIQUE: Noncontrast sagittal T1 spin echo and T2 fast spin echo with fat saturation, axial proton density fas t spin echo and T2 fast spin echo with fat saturation, coronal T1 spin echo and T2 fast spin echo wit h fat saturation through the ankle/hindfoot. COMPARISON: Ankle radiograph 04/22/2022. FINDINGS: Image quality: Excellent. Bones and joints: Osteoarthritic changes are noted in midfoot and hindfoot most notably involving na vicular cuneiform joint and talonavicular joint. No fracture or dislocation. Small to moderate tibiot alar joint effusion is seen. Tiny osteochondral injuries are noted involving lateral weightbearing po rtion of talar dome. No suspicious intraosseous lesion. Medial structures: The posterior tibialis is thickened at the level of talonavicular mid to distal t alus and talonavicular joint. The flexor digitorum longus, and flexor hallucis longus tendons are int act. The posterior tibial neurovascular bundle appears normal within the tarsal tunnel, without extr insic mass effect. The deep layer (anterior and posterior tibiotalar ligaments) and superficial laye r (tibionavicular, tibiospring, and tibiocalcaneal ligaments) of the deltoid ligament appear normal. The spring ligament components (superomedial calcaneonavicular, medioplantar oblique calcaneonavicul ar, and inferoplantar longitudinal ligaments) are intact. Lateral structures: The anterior talofibular ligament is attenuated suggestive of moderate to high-g rade ATFL tear. The calcaneofibular, and posterior talofibular ligaments appear intact. More superio rly, the anterior and posterior tibiofibular ligaments appear normal, as is the intermalleolar ligame nt. The tibiofibular syndesmosis is normal in width at 2 mm or less. The peroneus longus and brevis tendons demonstrate normal location and morphology. Adjacent bony peroneal tubercle and retrotrochl ear prominence are normal in size. The sinus tarsi demonstrates normal fatty signal, without edema, fibrosis, or cyst formation. Visualized sinus tarsi components (cervical ligament, interosseous talo calcaneal ligament, roots of the inferior extensor retinaculum) appear normal. Anterior structures: The tibialis anterior, extensor hallucis longus, and extensor digitorum longus tendons appear intact. Posterior and plantar structures: Achilles tendon is intact. Medial and lateral bands of the planta r fascia are of normal thickness. No abductor digiti quinti muscle atrophy to suggest Aguiar neuropa thy. IMPRESSION: 1. Midfoot and hindfoot joint osteoarthritis. No fracture or dislocation. Small to moderate tibiotala r joint effusion, no gross loose bodies. Suggestion of tiny 2 to 3 mm osteochondral injuries involvin g lateral weightbearing portion of talar dome. 2. Posterior tibialis tendinosis at the level of mid to distal talus and talonavicular joint. Rest of the ankle tendons are intact. 3. Suggestion of moderate to high-grade ATFL tear. Rest of the ankle ligaments are intact. Reviewed by: Rene Au MD on 07/02/2022 2:17 PM PST Approved by: Rene Au MD on 07/02/2022 2:17 PM PST Station ID: [id number]
== END 2022-06-29 08:59 | disposition home or self-care (01) ==
LOC: DI 08:58
PROVIDERS: ATTEND Podiatrist
DX: M19.071 Primary osteoarthritis, right ankle and foot (principal); M25.471 Effusion, right ankle; M67.971 Unspecified disorder of synovium and tendon, right ankle and foot

== ENCOUNTER 2022-10-16 15:52 | Outpatient (CLI) | payer MEDICARE, OTHER ==
--- NOTE | 2022-10-16 21:28 | MRI Report ---
PROCEDURE: SHOULDER WO - RT INDICATIONS: RIGHT ROTATOR CUFF TEAR TECHNIQUE: Noncontrast oblique coronal T2 fast spin echo with fat saturation, oblique sagittal T1 spin echo and T2 fast spin echo with fat saturation, axial T1 spin echo and T2 fast spin echo with fat saturation t hrough the shoulder. COMPARISON: None. FINDINGS: Image quality: Excellent. Rotator cuff: Moderate grade articular and bursal surface partial-thickness tear involving distal sup raspinatus at its insertion on humeral head is seen extending to musculotendinous junction. Focal are a of full-thickness perforation most anterior fibers of distal supraspinatus at its insertion on zachary ral head is likely present. Distal infraspinatus tendinosis and low-grade articular surface partial-t hickness tearing seen. Moderate grade intrasubstance partial thickness tear involving distal subscapu jerome is noted. Mild to moderate supraspinatus muscle atrophy is seen on sagittal images. Bones and bursae: Moderate acromioclavicular joint osteoarthritic changes are seen with downward ost eophyte formation depressing on musculotendinous junction of supraspinatus. Moderate glenohumeral lucho nt osteoarthritic changes also noted. There is moderate joint effusion and subacromial subdeltoid bur volodymyr fluid. No gross loose bodies. Marrow edema involving anterior aspect of humeral head is noted wit hout definite fracture line. Capsule and soft tissues: There is extensive signal abnormality and contour irregularity throughout a nterior labrum extending from 12 to 6:00 position suggestive of extensive anterior labral tear. The l sonja head of the biceps tendon is not visualized intra-articularly. The rotator interval appears norm al, without fibrosis. The coracohumeral ligament is normal in thickness. IMPRESSION: 1. Moderate grade articular and bursal surface partial-thickness tear involving distal supraspinatus extending to musculotendinous junction with focal area of full-thickness perforation involving most a nterior fibers of distal supraspinatus at its insertion on humeral head. Mild to moderate supraspinat us muscle atrophy. 2. Distal infraspinatus tendinosis and low-grade articular surface partial-thickness tear. Moderate g rade intrasubstance partial thickness tear involving distal subscapularis. 3. Bony contusion involving anterior aspect of humeral head adjacent to bicipital groove. No fracture or dislocation. Moderate acromioclavicular joint and glenohumeral joint osteoarthritis. Moderate jonny unt of joint effusion and subacromial subdeltoid bursal fluid. No gross loose bodies. 4. Suggestion of extensive anterior labral tear. 5. Suggestion of ruptured proximal long head of biceps tendon with distal retraction of torn tendon f ibers to the level of proximal humeral shaft. Reviewed by: Rene Brennan MD on 10/16/2022 9:26 PM PDT Approved by: Rene Brennan MD on 10/16/2022 9:26 PM PDT Station ID: [id number]
== END 2022-10-16 15:53 | disposition home or self-care (01) ==
LOC: DI 15:52
PROVIDERS: ATTEND Emergency Medicine
DX: M75.121 Complete rotator cuff tear or rupture of right shoulder, not specified as traumatic (principal); S40.021A Contusion of right upper arm, initial encounter; M19.011 Primary osteoarthritis, right shoulder; M25.411 Effusion, right shoulder

== ENCOUNTER 2023-06-10 10:39 | Outpatient (CLI) | payer MEDICARE, OTHER ==
--- NOTE | 2023-06-10 15:10 | CT Report ---
PROCEDURE: Low Dose Lung Cancer Screen INDICATIONS: SMOKER TECHNIQUE: A CT scan of the chest was performed. Intravenous contrast media was not administered. Images were re corded and evaluated at appropriate window settings. Reformats: axial MIP of the chest, coronal and s agittal. For radiation dose reduction, the following was used: automated exposure control, adjustment of mA and/or kV according to patient size. COMPARISON: 12/10/2021 FINDINGS: Lungs and pleura: No pleural effusions. No pneumothorax. Moderate bilateral pulmonary emphysema . No evidence of pulmonary nodules. Mild bibasilar scarring present. Mediastinum: Heart size is normal. No pericardial effusion. No large vessel abnormality. No mediastin al adenopathy by size criteria. Chest wall and lower neck: Thyroid is unremarkable. No axillary or supraclavicular adenopathy by size . Bones: Multilevel degenerative disc disease and arthropathy without lytic or blastic lesion Upper Abdomen: Bilateral low-density adrenal nodules have slightly increased in size now measuring 4. 3 cm in the right and 4.7 cm and the left, previously 3.4 cm in the right and 4.0 cm and the left. De nse aortic atherosclerotic vascular calcification without aneurysm IMPRESSION: Moderate pulmonary emphysema without pulmonary nodule. Lung RADS category 1. Benign. Advise annual screening Reviewed by: Vamsi Wheatley MD on 06/10/2023 2:09 PM [place] Approved by: Vamsi Wheatley MD on 06/10/2023 2:09 PM [facility] Station ID: [id number]
== END 2023-06-10 10:40 | disposition home or self-care (01) ==
LOC: DI 10:39
PROVIDERS: ATTEND Registered Nurse
DX: Z12.2 Encounter for screening for malignant neoplasm of respiratory organs (principal); F17.210 Nicotine dependence, cigarettes, uncomplicated; J43.9 Emphysema, unspecified

== ENCOUNTER 2023-07-18 08:00 | Outpatient (CLI) | payer MEDICARE, OTHER ==
--- NOTE | 2023-07-18 13:07 | XRAY Report ---
PROCEDURE: Chest 2V INDICATIONS: CHRONIC OBSTRUCTIVE AIRWAY DIS EXACERBATION TECHNIQUE: 2 views of the chest were acquired. COMPARISON: CT chest 06/10/2023 FINDINGS: Surgical changes and devices: Cervical spinal fusion hardware is partially imaged.. Lungs and pleura: No pleural effusions or pneumothorax. Lungs are hyperexpanded and clear. Mediastinum: Mediastinal contours appear normal. Heart size is normal. Bones and chest wall: No suspicious bony lesions. Overlying soft tissues appear unremarkable. IMPRESSION: Hyperexpanded lungs can be seen in the setting of COPD. No acute cardiopulmonary abnormality identifi ed. Reviewed by: Wale Sanchez MD on 07/18/2023 1:06 PM PST Approved by: Wale Sanchez MD on 07/18/2023 1:06 PM PST Station ID: [id number]
== END 2023-07-18 23:59 | disposition home or self-care (01) ==
LOC: DI.S 08:00
PROVIDERS: ATTEND Emergency Medicine
DX: J44.1 Chronic obstructive pulmonary disease with (acute) exacerbation (principal)

== ENCOUNTER 2023-08-06 08:00 | Outpatient (CLI) | payer MEDICARE, OTHER ==
--- NOTE | 2023-08-06 19:36 | XRAY Report ---
PROCEDURE: Chest 2V INDICATIONS: ACUTE COUGH TECHNIQUE: 2 views of the chest were obtained. COMPARISON: None. FINDINGS: Surgical changes and devices: None. Lungs and pleura: No pleural effusions or pneumothorax. Lungs are clear. Mediastinum: Mediastinal contours appear normal. Heart size is normal. Bones and chest wall: No suspicious bony lesions. Overlying soft tissues appear unremarkable. IMPRESSION: There is hyperinflation and chronic interstitial changes without focal infiltrate, pneumothorax or pl eural effusion. Reviewed by: Vamsi Wheatley MD on 08/06/2023 6:35 PM [facility] Approved by: Vamsi Wheatley MD on 08/06/2023 6:35 PM [facility] Station ID: [id number]
--- NOTE | 2023-08-06 20:12 | XRAY Report ---
PROCEDURE: Ankle 3+V LT INDICATIONS: LEFT ANKLE PAIN TECHNIQUE: 3 views of the ankle were acquired. COMPARISON: None FINDINGS: Bones: No fractures or dislocations. Ankle mortise is normally aligned. No suspicious bony lesions . Soft tissues: Unremarkable without significant soft tissue swelling. No radiopaque foreign body. IMPRESSION: Unremarkable ankle radiographs Reviewed by: Vamsi Wheatley MD on 08/06/2023 7:11 PM [facility] Approved by: Vamsi Wheatley MD on 08/06/2023 7:11 PM [facility] Station ID: [id number]
== END 2023-08-06 23:59 | disposition home or self-care (01) ==
LOC: DI.S 08:00
PROVIDERS: ATTEND Registered Nurse
DX: R05.1 Acute cough (principal); M25.572 Pain in left ankle and joints of left foot

== ENCOUNTER 2023-10-01 07:14 | Outpatient (CLI) | payer MEDICARE, OTHER ==
[2023-10-01 14:42] LABS: BASOPHILS # (AUTO) 0.1 10^3/uL (0.0-0.1); BASOPHILS % (AUTO) 1.1 %; EOSINOPHILS # (AUTO) 0.2 10^3/uL (0.0-0.7); HCT - HEMATOCRIT 43.8 % (37.0-47.0); HGB - HEMOGLOBIN 14.2 g/dL (12.0-16.0); LYMPHOCYTES % (AUTO) 39.9 %; MEAN CORPUSCULAR HEMOGLOBIN 31.5 pg (27.0-31.0); MEAN CORPUSCULAR HGB CONC 32.4 g/dL (32.0-36.0); MEAN CORPUSCULAR VOLUME 97.1 fL (81.0-99.0); MEAN PLATELET VOLUME 10.4 fL (7.9-10.8); MONOCYTES # (AUTO) 0.6 10^3/uL (0.0-1.0); NEUTROPHILS # (AUTO) 3.6 10^3/uL (1.5-6.6); NEUTROPHILS % (AUTO) 48.1 %; PLT - PLATELET COUNT 315 10^3/uL (130-450); RED BLOOD COUNT 4.51 10^6/uL (4.20-5.40); RED CELL DISTRIBUTION WIDTH 12.1 % (12.0-15.0); WHITE BLOOD COUNT 7.4 x10^3/uL (4.8-10.8)
[2023-10-01 15:14] LABS: THYROID STIMULATING HORMONE 3.75 uIU/mL (0.34-5.60)
[2023-10-01 15:53] LABS: ALBUMIN 4.2 g/dL (3.2-5.5); ALBUMIN/GLOBULIN RATIO 1.4 (1.0-2.2); ALKALINE PHOSPHATASE 82 IU/L (42-121); ALT ALANINE AMINOTRANSFERASE 14 IU/L (10-60); AST ASPARTATE AMINOTRANSFERASE 17 IU/L (10-42); BILIRUBIN,TOTAL 0.5 mg/dL (0.2-1.0); BUN - BLOOD UREA NITROGEN 10 mg/dL (6-20); CALCIUM 9.6 mg/dL (8.5-10.3); CARBON DIOXIDE - CO2 28 mmol/L (21-32); CHLORIDE 104 mmol/L (101-111); CHOL/HDL RATIO 2.2 (<4.4); CHOLESTEROL 166 mg/dL; CREATININE 0.6 mg/dL (0.6-1.3); GFR - MDRD 97 (>89); GLUCOSE 88 mg/dL (74-104); HDL CHOLESTEROL 75 mg/dL; LDL CHOLESTEROL,CALCULATED 71 mg/dL; LDL/HDL RATIO 0.9 (<4.4); POTASSIUM 4.1 mmol/L (3.5-4.5); SODIUM 138 mmol/L (135-145); TOTAL PROTEIN 7.2 g/dL (6.4-8.9); TRIGLYCERIDES 99 mg/dL (48-352); VLDL CHOLESTEROL 20 mg/dL
[2023-10-01 20:37] LABS: ESTIMATED AVERAGE GLUCOSE 108 mg/dL (70-100); HEMOGLOBIN A1c% 5.4 % (4.27-6.07)
== END 2023-10-01 07:15 | disposition home or self-care (01) ==
LOC: LAB.S 07:14
PROVIDERS: ATTEND Registered Nurse
DX: I10 Essential (primary) hypertension (principal); Z79.899 Other long term (current) drug therapy; Z86.79 Personal history of other diseases of the circulatory system; R82.4 Acetonuria; E03.9 Hypothyroidism, unspecified; Z85.850 Personal history of malignant neoplasm of thyroid
CPT/HCPCS: 36415; 80053; 80061; 83036; 83721; 84443; 85025

== ENCOUNTER 2023-12-19 07:26 | Outpatient (CLI) | payer MEDICARE, OTHER | END 2023-12-19 07:27 | disposition home or self-care (01) | LOC: LAB.S 07:26 | PROVIDERS: ATTEND Internal Medicine | DX: E27.8 Other specified disorders of adrenal gland (principal) | CPT/HCPCS: 36415; 81599; 82533 ==

== ENCOUNTER 2023-12-19 08:00 | Outpatient (CLI) | payer MEDICARE, OTHER | END 2023-12-19 23:59 | disposition home or self-care (01) | LOC: LAB.S 08:00 | PROVIDERS: ATTEND Emergency Medicine | DX: J34.0 Abscess, furuncle and carbuncle of nose (principal); E27.8 Other specified disorders of adrenal gland | CPT/HCPCS: 36415; 80299; 81599; 82533; 87070; 87181; 87205 ==

== ENCOUNTER 2024-01-26 08:25 | Outpatient (CLI) | payer MEDICARE, OTHER | END 2024-01-26 08:26 | disposition home or self-care (01) | LOC: LAB 08:25 | PROVIDERS: ATTEND Internal Medicine | DX: E27.8 Other specified disorders of adrenal gland (principal) | CPT/HCPCS: 81599; 82533 ==

== ENCOUNTER 2024-02-07 07:42 | Outpatient (CLI) | payer MEDICARE, OTHER | END 2024-02-07 07:43 | disposition home or self-care (01) | LOC: LAB 07:42 | PROVIDERS: ATTEND Internal Medicine | DX: E27.8 Other specified disorders of adrenal gland (principal) | CPT/HCPCS: 36415; 82024; 82088; 82533; 84244 ==

== ENCOUNTER 2024-02-25 07:33 | Outpatient (CLI) | payer MEDICARE, OTHER | END 2024-02-25 07:34 | disposition home or self-care (01) | LOC: LAB 07:33 | PROVIDERS: ATTEND Internal Medicine | DX: E27.8 Other specified disorders of adrenal gland (principal) | CPT/HCPCS: 36415; 81599; 82533 ==